=== PATIENT | male | born 1975 | race American Indian/Alaskan Native ===

== ENCOUNTER 2019-02-22 10:44 | Emergency (ER) | payer MEDICAID ==
[2019-02-22 10:53] VITALS: BP 140/73
--- NOTE | 2019-02-22 11:55 | Emergency Department Report ---
Chief Complaint: Skin/Abscess/Foreign Body Stated Complaint: LFT INNER THIGH BOIL/PAIN Time Seen by Provider: 02/22/19 11:53 - HPI History of Present Illness: co abscess on thigh vss non toxic no life threat mse completed - Exam Vital Signs: Vital Signs 02/22/19 10:52 Temperature 98.4 F Pulse Rate 75 Respiratory 18 Rate Blood Pressure 140/73 O2 Sat by Pulse 100 Oximetry MSE screening note: Focused history and physical exam performed. Due to findings the following was ordered: ED Disposition for MSE Condition: Stable
[2019-02-22] MEDS ORDERED: XYLOCAINE 2% INFILTRATI ONE (12:16)
[2019-02-22] MEDS ORDERED: BACTRIM DS PO ONE (12:17)
--- NOTE | 2019-02-22 12:22 | Emergency Department Report ---
HPI - General Chief Complaint: Skin/Abscess/Foreign Body Time Seen by Provider: 02/22/19 11:53 - HPI HPI: 44-year-old -[place] male presents to the emergency department with complaint of a boil or abscess to the inner left thigh that has been there for the past 3 or 4 days. He says that there is been some discharge of pus as well as some bleeding from the area on 2 different occasions and he tries to "squeeze the rest of it out." It is tender to palpation. He denies any fever, nausea or vomiting. He says he has had a abscess one time in the past. Otherwise no other past medical history. No primary care physician. ED Past Medical Hx - Past Medical History Previous Medical History?: No - Surgical History Past Surgical History?: Yes Additional Surgical History: hernia repair - Social History Smoking Status: Never Smoker Substance Use Type: Marijuana - Medications Home Medications: Home Medications Medication Instructions Recorded Confirmed Last Taken Type cephALEXin [Keflex] 1,000 mg PO BID #28 capsule 02/22/19 Unknown Rx ED Review of Systems ROS: Stated complaint: LFT INNER THIGH BOIL/PAIN Other details as noted in HPI Comment: All other systems reviewed and negative Constitutional: denies: chills, fever Eyes: denies: eye pain, vision change ENT: denies: ear pain, throat pain Respiratory: denies: cough, shortness of breath Cardiovascular: denies: chest pain, palpitations Gastrointestinal: denies: abdominal pain, vomiting Genitourinary: denies: dysuria, discharge Musculoskeletal: denies: back pain, joint swelling Skin: lesions, change in color Neurological: denies: headache, weakness Physical Exam - Physical Exam Vital Signs: Vital Signs 02/22/19 10:52 Temperature 98.4 F Pulse Rate 75 Respiratory 18 Rate Blood Pressure 140/73 O2 Sat by Pulse 100 Oximetry Physical Exam: GENERAL: The patient is well-developed well-nourished. HEENT: Normocephalic. Atraumatic. Patient has moist mucous membranes. EYES: Extraocular motions are intact. NECK: Supple. Trachea is midline. CHEST/LUNGS: Clear to auscultation. There is no respiratory distress noted. HEART/CARDIOVASCULAR: Regular. There is no tachycardia. There is no obvious murmur. ABDOMEN: There is no abdominal distention. SKIN: Skin is warm and dry. There is an abscess to the left medial mid thigh that is about 3 inches in diameter. The center of this has a dark eschar/scab. Surrounding the entire area is some erythema consistent with cellulitis. NEURO: The patient is awake, alert, and oriented. The patient is cooperative. The patient has no focal neurologic deficits. The patient has normal speech. MUSCULOSKELETAL: There is tenderness to palpation of the left medial thigh with the patient has an abscess. There is no limitation range of motion. ED Course Vital Signs 02/22/19 10:52 Temperature 98.4 F Pulse Rate 75 Respiratory 18 Rate Blood Pressure 140/73 O2 Sat by Pulse 100 Oximetry - I & D Left Thigh Type of Procedure: Simple Site: left medial thigh Blade Size: 11 I & D Procedure: betadine prep, sterile drapes applied, sterile dressing applied Progress: A 1 cm incision was made. There was a release of about 2-3 mL of purulence. There was a small amount of blood as well with a total estimated blood loss of about 1 mL. the patient tolerated procedure well. A sterile dressing has been a pplied. ED Medical Decision Making - Medical Decision Making Patient presents with a left medial thigh abscess. An I&D was done that did get some purulent drainage return. There is also some surrounding cellulitis. The patient will be placed on antibiotics. We discussed how to clean the area and monitoring for worsening infection. Vital signs stable. - Differential Diagnosis abscess, boil, cellulitis, cyst Critical Care Time: No Critical care attestation.: If time is entered above; I have spent that time in minutes in the direct care of this critically ill patient, excluding procedure time. ED Disposition Clinical Impression: Abscess of left thigh Disposition: DC-01 TO HOME OR SELFCARE Is pt being admited?: No Condition: Stable Instructions: Abscess Incision and Drainage (ED), Abscess (ED) Additional Instructions: Clean the area with soap and water and then make sure it remains dry. Take the antibiotics as prescribed. Use a warm, but not hot, compress to the area multiple times to try and express any further infection. Follow up with a primary care physician. Make sure you are seen sooner with any signs or symptoms of worsening infection such as worsening surrounding redness, increased discharge of pus, development of fever, or with any acute distress. Prescriptions: cephALEXin [Keflex] 1,000 mg PO BID #28 capsule Referrals: ROHINI CARRINGTONYERMO MD YESENIA [Primary Care Provider] - 3-5 Days DEBO CAUSEY MD [Staff Physician] - 3-5 Days [facility] [Outside] - 3-5 Days Time of Disposition: 13:21
[2019-02-22] MEDS ORDERED: KEFLEX PO ONE (12:37)
== END 2019-02-22 13:44 | disposition home or self-care (01) ==
LOC: ED 10:44
DX: L02.416 Cutaneous abscess of left lower limb (principal); F12.10 Cannabis abuse, uncomplicated
CPT/HCPCS: 99282